=== PATIENT | male | born 2000 | race African-American/Black ===

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

== ENCOUNTER 2018-01-22 14:06 | Emergency (ER) | payer OTHER ==
[~2018-01-22] VITALS: Ht 177.8 cm; Wt 65.8 kg
[2018-01-22 14:30] LABS: URINE BILIRUBIN NEGATIVE (Negative); URINE BLOOD NEGATIVE (Negative); URINE CLARITY CLEAR; URINE COLOR YELLOW; URINE GLUCOSE-RANDOM* NEGATIVE (Negative); URINE KETONES NEGATIVE (Negative); URINE NITRITE-REFLEX NEGATIVE (Negative); URINE PROTEIN (DIPSTICK) NEGATIVE (Negative); URINE SPECIFIC GRAVITY >= 1.030 (1.005-1.035); URINE UROBILINOGEN 0.2 E.U./dl (0.2-1.0)
[2018-01-22 14:31] LABS: URINE LEUKOCYTES-REFLEX TRACE (Negative)
[2018-01-22 14:37] LABS: CRYSTALS None Seen /LPF (None Seen); SQUAMOUS 0-3 Few /LPF (0-3)
[2018-01-22 14:38] LABS: BACTERIA-REFLEX None Seen /HPF (None Seen); CASTS None Seen /LPF (None Seen); MUCUS 4-6 Moderate strn/LPF (None Seen); URINE RBC 0-2 Rare /HPF (0-2); URINE WBC-REFLEX 0-5 Rare /HPF (0-5)
[2018-01-22 15:52] VITALS: BP 131/79
== END 2018-01-22 15:54 | disposition home or self-care (01) ==
LOC: ER 14:06
PROVIDERS: Physician Assistant
DX: Z20.2 Contact with and (suspected) exposure to infections with a predominantly sexual mode of transmission (principal)